=== PATIENT | male | born 1990 | race Caucasian/White ===

== ENCOUNTER 2019-06-21 16:13 | Emergency (ER) | payer SELFPAY ==
[~2019-06-21] VITALS: Ht 195.5 cm; Wt 72.7 kg
--- NOTE | 2019-06-21 16:33 | ED EENT ---
History of Present Illness General Stated Complaint: SOB History of Present Illness Date Seen by Provider: Jun 21, 2019 Time Seen by Provider: 16:20 Initial Comments 29 -year-old male presents for dental pain, right neck swelling and pain, and difficulty swallowing. He has been seen at [facility] emergency department and started on clindamycin. He was seen at [facility] today and referred here for IV antibiotics. He reports that he is able to swallow liquids, has difficulty with any thick foods or meats. 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 Had cyst in his mouth, that required surgery at age 2-3 years. Hasn't seen a dentis since age 15, doesn't brush teeth regularly. Timing/Duration: last week Location: mouth, throat Prearrival Treatment: over the counter meds, prescription meds Associated Symptoms: drooling, facial pain/swelling; No fever, No malaise, No nasal congestion/drainage, No poor fluid intake; poor solids intake; No sinus infection, No sore throat; tooth pain; No voice change Allergies and Home Medications Allergies Coded Allergies: Iodinated Contrast Media (Unverified Allergy, Unknown, 06/21/19) Sulfa (Sulfonamide Antibiotics) (Verified Allergy, Unknown, 06/21/19) erythromycin base (Verified Allergy, Unknown, 06/21/19) Home Medications Amoxicillin/Potassium Clav 1 Each Tablet, 1 EACH PO BID Prescribed by: FABIAN YBARRA on 06/21/191836 Prednisone 20 Mg Tab, 40 MG PO DAILY Prescribed by: FABIAN YBARRA on 06/21/191836 Patient Home Medication List Home Medication List Reviewed: Yes Review of Systems Review of Systems Constitutional: no symptoms reported, see HPI Mouth: see HPI, loose teeth Throat: see HPI, swelling, painful swallowing Respiratory: no symptoms reported, see HPI All Other Systems Reviewed Negative Unless Noted: Yes Past Ythyorz-Oijwdt-Pmvcqr Hx Past Med/Social Hx: Reviewed Nursing Past Med/Soc Hx Patient Social History Recreational Drug Use: No (Patient denies, UDS + canibinoids. ) Recent Foreign Travel: No Contact w/Someone Who Travel: No Physical Exam Vital Signs Vital Signs - First Documented 06/21/19 17:04 Temp 38.1 Pulse 74 Resp 14 B/P (MAP) 125/75 (92) Pulse Ox 100 O2 Delivery Room Air Height, Weight, BMI Height: '" Weight: lbs. oz. kg; BMI Method: General Appearance: WD/WN, no apparent distress Eyes: bilateral eye normal inspection, bilateral eye PERRL, bilateral eye EOMI Ears: bilateral ear auricle normal, bilateral ear canal normal, bilateral ear TM normal Nose: normal inspection; No active bleeding, No discharge Mouth/Throat: pharynx normal, dental tenderness, excessive drooling; No foreign body; mandibular swelling (right), maxillary swelling; No pharynx swelling, No pharynx tenderness, No tongue swollen, No tonsillar exudate, No uvula swelling, No voice changes; other (Marked gingivitis and tooth decay. Leukplakia under tongue on right. ) Neck: full range of motion; No carotid bruit; lymphadenopathy (R), other (marked swelling and tenderness right neck, just below mandible. No fluctuance but indurated and warmth. Trachea Midline. NO dyspnea) Cardiovascular: normal peripheral pulses, regular rate, rhythm Respiratory: chest non-tender, lungs clear, normal breath sounds Gastrointestinal: normal bowel sounds, non tender, soft Neurologic/Psychiatric: no motor/sensory deficits, alert, normal mood/affect, oriented x 3 Skin: normal color, warm/dry Progress/Results/Core Measures Results/Orders Lab Results Laboratory Tests Test 06/21/19 16:30 06/21/19 18:00 Range/Units White Blood Count 21.1 H 4.3-11.0 10^3/uL Red Blood Count 4.94 4.35-5.85 10^6/uL Hemoglobin 15.1 13.3-17.7 G/DL Hematocrit 44 40-54 % Mean Corpuscular Volume 90 80-99 FL Mean Corpuscular Hemoglobin 31 25-34 PG Mean Corpuscular Hemoglobin Concent 34 32-36 G/DL Red Cell Distribution Width 12.7 10.0-14.5 % Platelet Count 254 130-400 10^3/uL Mean Platelet Volume 10.3 7.4-10.4 FL Neutrophils (%) (Auto) 83 H 42-75 % Lymphocytes (%) (Auto) 11 L 12-44 % Monocytes (%) (Auto) 6 0-12 % Eosinophils (%) (Auto) 0 0-10 % Basophils (%) (Auto) 0 0-10 % Neutrophils # (Auto) 17.5 H 1.8-7.8 X 10^3 Lymphocytes # (Auto) 2.3 1.0-4.0 X 10^3 Monocytes # (Auto) 1.2 H 0.0-1.0 X 10^3 Eosinophils # (Auto) 0.0 0.0-0.3 10^3/uL Basophils # (Auto) 0.0 0.0-0.1 10^3/uL Neutrophils % (Manual) 88 % Lymphocytes % (Manual) 8 % Monocytes % (Manual) 4 % Eosinophils % (Manual) 0 % Basophils % (Manual) 0 % Band Neutrophils 0 % Blood Morphology Comment NORMAL Sodium Level 139 135-145 MMOL/L Potassium Level 3.6 3.6-5.0 MMOL/L Chloride Level 103 98-107 MMOL/L Carbon Dioxide Level 26 21-32 MMOL/L Anion Gap 10 5-14 MMOL/L Blood Urea Nitrogen 10 7-18 MG/DL Creatinine 0.85 0.60-1.30 MG/DL Estimat Glomerular Filtration Rate > 60 BUN/Creatinine Ratio 12 Glucose Level 99 70-105 MG/DL Calcium Level 10.2 H 8.5-10.1 MG/DL Corrected Calcium 9.9 8.5-10.1 MG/DL Total Bilirubin 0.8 0.1-1.0 MG/DL Aspartate Amino Transf (AST/SGOT) 18 5-34 U/L Alanine Aminotransferase (ALT/SGPT) 17 0-55 U/L Alkaline Phosphatase 62 40-136 U/L Total Protein 8.6 H 6.4-8.2 GM/DL Albumin 4.4 3.2-4.5 GM/DL Urine Color YELLOW Urine Clarity CLEAR Urine pH 8 5-9 Urine Specific [place] 1.010 L 1.016-1.022 Urine Protein 2+ H NEGATIVE Urine Glucose (UA) NEGATIVE NEGATIVE Urine Ketones 3+ H NEGATIVE Urine Nitrite NEGATIVE NEGATIVE Urine Bilirubin NEGATIVE NEGATIVE Urine Urobilinogen NORMAL NORMAL MG/DL Urine Leukocyte Esterase 1+ H NEGATIVE Urine RBC (Auto) NEGATIVE NEGATIVE Urine RBC NONE /HPF Urine WBC 0-2 /HPF Urine Squamous Epithelial Cells 0-2 /HPF Urine Crystals NONE /LPF Urine Bacteria NEGATIVE /HPF Urine Casts NONE /LPF Urine Mucus NEGATIVE /LPF Urine Culture Indicated NO Urine Opiates Screen POSITIVE H NEGATIVE Urine Oxycodone Screen NEGATIVE NEGATIVE Urine Methadone Screen NEGATIVE NEGATIVE Urine Propoxyphene Screen NEGATIVE NEGATIVE Urine Barbiturates Screen NEGATIVE NEGATIVE Ur Tricyclic Antidepressants Screen NEGATIVE NEGATIVE Urine Phencyclidine Screen NEGATIVE NEGATIVE Urine Amphetamines Screen NEGATIVE NEGATIVE Urine Methamphetamines Screen NEGATIVE NEGATIVE Urine Benzodiazepines Screen NEGATIVE NEGATIVE Urine Cocaine Screen NEGATIVE NEGATIVE Urine Cannabinoids Screen POSITIVE H NEGATIVE My Orders Orders - TATEFABIAN PÉREZ Cbc With Automated Diff (06/21/19 16:29) Comprehensive Metabolic Panel (06/21/19 16:29) Drug Screen Stat (Urine) (06/21/19 16:29) Ua Culture If Indicated (06/21/19 16:29) Ct Neck (Soft Tissue) Wo (06/21/19 16:29) Manual Differential (06/21/19 16:30) Ketorolac Injection (Toradol Injection) (06/21/19 17:00) Ceftriaxone For Iv Use (Rocephin For I (06/21/19 17:00) Ed Iv/Invasive Line Start (06/21/19 17:36) Ns Iv 1000 Ml (Sodium Chloride 0.9%) (06/21/19 17:36) Medications Given in ED Current Medications Medications Dose Ordered Sig/Swapna Route Start Time Stop Time Status Last Admin Dose Admin Ceftriaxone Sodium 2000 mg/ Sterile Water 20 ml @ 240 mls/hr ONCE ONCE IV 06/21/19 17:00 06/21/19 17:04 DC 06/21/19 17:20 240 MLS/HR Ketorolac Tromethamine 30 mg ONCE ONCE IVP 06/21/19 17:00 06/21/19 17:01 DC 06/21/19 16:51 30 MG Vital Signs/I&O 06/21/19 06/21/19 17:04 18:52 Temp 38.1 38.1 Pulse 74 74 Resp 14 14 B/P (MAP) 125/75 (92) 125/75 (92) Pulse Ox 100 100 O2 Delivery Room Air Progress Progress Note : Time: 16:20 Progress Note Patient seen and evaluated, recommended labs and CT of the neck/soft tissues. 1700 Toradol for pain, normal saline 1 L per IV, Rocephin 2 g per IV. 1745 Decadron 10 mg IV for inflammation, CT shows the soft tissue abscess to the neck, isolated with no extension to face. Airway is not compromised. 1830 Patient reports pain improved, taking ice chips, no trouble swallowing and managing oral secretions. Discharge instructions and return precautions reviewed with the patient. Stressed the importance of following up in establishing with a dentist and primary care provider. Diagnostic Imaging Diagonstic Imaging: CT Plain Films/CT/US/NM/MRI: other (neck and soft tissue) Comments NAME: [facility]ILLIE SHELTON [facility] REC#: [id number] PT STATUS: REG ER : 1990 PHYSICIAN: FABIAN YBARRA ADMIT DATE: 06/21/19/ER Draft Date of Exam:06/21/19 CT NECK (SOFT TISSUE) WO PROCEDURE: CT neck soft tissue without contrast. TECHNIQUE: Multiple contiguous axial images were obtained through the neck without the use of intravenous contrast. Auto Exposure Controls were utilized during the CT exam to meet ALARA standards for radiation dose reduction. INDICATION: Right-sided swelling underneath the jaw x2 weeks. Swollen tongue. History of a cyst under the right jaw removed at 2-3 years old. COMPARISON: None. FINDINGS: Examination is markedly limited by lack of intravenous contrast. There is a mixed attenuation mass which appears to involve both the floor of the mouth and may extend inferior to the mylohyoid muscle, which measures approximately 3.7 x 6.3 x 4.7 cm. This mass abuts the lingual surface of the right mandible with no suspicious lytic or sclerotic changes. There is an enlarged right jugulodigastric lymph node measuring up to 1.3 cm in short axis dimension. There is also an enlarged level I cervical lymph node measuring up to 1.3 cm in short axis dimension. No appreciable mass effect upon the airway. No large pharyngeal or laryngeal mass is appreciated on this noncontrast exam. The thyroid gland is unremarkable. The parotid and submandibular glands are poorly characterized due to the lack of IV contrast. The lung apices are clear. No acute osseous findings. The skull base, visualized paranasal sinuses, and mastoids are clear. IMPRESSION: Large mass in the right floor of the mouth may extend inferior to the mylohyoid muscle and measures up to 6.3 cm. There is also an enlarged right jugulodigastric and level I cervical lymph node. Otherwise, the cervical lymph nodes are overall prominent but nonenlarged by criteria. Given the history of a benign cystic mass removed during childhood, this may represent secondary infection of a residual component. A more malignant process cannot be excluded. Recommend MRI of the neck without and with IV contrast for further evaluation. Dictated on workstation # [id number] Dict: 06/21/19 1733 Trans: 06/21/19 1745 [id number] Interpreted by: GINETTE AC MD Electronically signed by: Reviewed: Reviewed by Me Departure Impression Primary Impression: Dental abscess Additional Impression: Cellulitis and abscess of neck Disposition: HOME, SELF-CARE Condition: Improved Departure-Patient Inst. Decision time for Depature: 18:30 Referrals: NO,LOCAL PHYSICIAN (PCP/Family) Primary Care Physician Patient Instructions: Tooth Decay, Adult (DC), Cellulitis (Skin Infection), Adult (DC) Add. Discharge Instructions: Continue taking the clindamycin as previously prescribed. Take the Augmentin one tablet twice daily as prescribed. You may alternate between Tylenol 650 mg and ibuprofen 600 mg every 4 hours for pain and swelling or fever. Continue to use salt water gargles, also rinse mouth with peroxide every 2 hours and/or Listerine. Follow-up at [facility] if symptoms are not improving or worsen. Go to the emergency department if you have difficulty breathing, inability to swallow, fever greater than 101 not relieved by Tylenol and ibuprofen or new urgent health care needs. Scripts Prednisone (Prednisone) 20 Mg Tab 40 MG PO DAILY, #6 TAB 0 Refills Prov: FABIAN YBARRA 06/21/19 Amoxicillin/Potassium Clav (Augmentin 875-125 Tablet) 1 Each Tablet 1 EACH PO BID, #20 TAB 0 Refills Prov: FABIAN YBARRA 06/21/19 FABIAN YBARRA Jun 21, 2019 16:33
[2019-06-21 16:45] LABS: BASOPHILS % (AUTO) 0 % (0-10); EOSINOPHILS % (AUTO) 0 % (0-10); HEMATOCRIT 44 % (40-54); HEMOGLOBIN 15.1 G/DL (13.3-17.7); LYMPHOCYTES # (AUTO) 2.3 X 10^3 (1.0-4.0); LYMPHOCYTES % (AUTO) 11 % (12-44); MEAN CORPUSCULAR HEMOGLOBIN 31 PG (25-34); MEAN CORPUSCULAR HGB CONC 34 G/DL (32-36); MEAN CORPUSCULAR VOLUME 90 FL (80-99); MEAN PLATELET VOLUME 10.3 FL (7.4-10.4); MONOCYTES # (AUTO) 1.2 X 10^3 (0.0-1.0); MONOCYTES % (AUTO) 6 % (0-12); NEUTROPHILS # (AUTO) 17.5 X 10^3 (1.8-7.8); NEUTROPHILS % (AUTO) 83 % (42-75); PLATELET COUNT 254 10^3/uL (130-400); RED CELL DISTRIBUTION WIDTH 12.7 % (10.0-14.5); WHITE BLOOD COUNT 21.1 10^3/uL (4.3-11.0)
[2019-06-21] MEDS ORDERED: cefTRIAXone FOR IV USE 2,000 MG in WATER (STERILE) FOR INJECTION 20 ML IV ONE (17:00)
[2019-06-21] MEDS ORDERED: KETOROLAC 30 MG/ML VIAL IVP ONE (17:00)
[2019-06-21 17:05] LABS: ALANINE AMINOTRANSFERASE 17 U/L (0-55); ALBUMIN 4.4 GM/DL (3.2-4.5); ALKALINE PHOSPHATASE 62 U/L (40-136); BILIRUBIN,TOTAL 0.8 MG/DL (0.1-1.0); BUN/CREATININE RATIO 12; CALCIUM 10.2 MG/DL (8.5-10.1); CARBON DIOXIDE 26 MMOL/L (21-32); CHLORIDE 103 MMOL/L (98-107); CREATININE SERUM 0.85 MG/DL (0.60-1.30); GFR ESTIMATED > 60; GLUCOSE 99 MG/DL (70-105); POTASSIUM 3.6 MMOL/L (3.6-5.0); SODIUM 139 MMOL/L (135-145); TOTAL PROTEIN 8.6 GM/DL (6.4-8.2)
[2019-06-21 17:08] LABS: BAND NEUTROPHILS 0 %; BASOPHILS % (MANUAL) 0 %; EOSINOPHILS % (MANUAL) 0 %; LYMPHOCYTES % (MANUAL) 8 %; MONOCYTES % (MANUAL) 4 %; NEUTROPHILS % (MANUAL) 88 %; RBC MORPH NORMAL
[2019-06-21] MEDS ORDERED: NS IV 1000 ML 1,000 ML IV SCH (17:36)
--- NOTE | 2019-06-21 17:45 | Diagnostic Imaging Report ---
PROCEDURE: CT neck soft tissue without contrast. TECHNIQUE: Multiple contiguous axial images were obtained through the neck without the use of intravenous contrast. Auto Exposure Controls were utilized during the CT exam to meet ALARA standards for radiation dose reduction. INDICATION: Right-sided swelling underneath the jaw x2 weeks. Swollen tongue. History of a cyst under the right jaw removed at 2-3 years old. COMPARISON: None. FINDINGS: Examination is markedly limited by lack of intravenous contrast. There is a mixed attenuation mass which appears to involve both the floor of the mouth and may extend inferior to the mylohyoid muscle, which measures approximately 3.7 x 6.3 x 4.7 cm. This mass abuts the lingual surface of the right mandible with no suspicious lytic or sclerotic changes. There is an enlarged right jugulodigastric lymph node measuring up to 1.3 cm in short axis dimension. There is also an enlarged level I cervical lymph node measuring up to 1.3 cm in short axis dimension. No appreciable mass effect upon the airway. No large pharyngeal or laryngeal mass is appreciated on this noncontrast exam. The thyroid gland is unremarkable. The parotid and submandibular glands are poorly characterized due to the lack of IV contrast. The lung apices are clear. No acute osseous findings. The skull base, visualized paranasal sinuses, and mastoids are clear. IMPRESSION: Large mass in the right floor of the mouth may extend inferior to the mylohyoid muscle and measures up to 6.3 cm. There is also an enlarged right jugulodigastric and level I cervical lymph node. Otherwise, the cervical lymph nodes are overall prominent but nonenlarged by criteria. Given the history of a benign cystic mass removed during childhood, this may represent secondary infection of a residual component. A more malignant process cannot be excluded. Recommend MRI of the neck without and with IV contrast for further evaluation. Dictated by: Dictated on workstation # [id number]
[2019-06-21 18:09] LABS: BILIRUBIN,URINE NEGATIVE (NEGATIVE); CLARITY,URINE CLEAR; COLOR,URINE YELLOW; GLUCOSE, URINE (UA) NEGATIVE (NEGATIVE); KETONES,URINE 3+ (NEGATIVE); LEUKOCYTE ESTERASE ,URINE 1+ (NEGATIVE); NITRITE,URINE NEGATIVE (NEGATIVE); PH,URINE 8 (5-9); PROTEIN,URINE 2+ (NEGATIVE); UROBILINOGEN,URINE NORMAL (NORMAL)
[2019-06-21 18:20] LABS: AMPHETAMINE SCREEN, URINE NEGATIVE (NEGATIVE); BARBITURATE SCREEN URINE NEGATIVE (NEGATIVE); BENZODIAZEPINES SCREEN URINE NEGATIVE (NEGATIVE); CANNABINOID SCREEN, URINE POSITIVE (NEGATIVE); COCAINE SCREEN URINE NEGATIVE (NEGATIVE); METHADONE STAT NEGATIVE (NEGATIVE); METHAMPHETAMINE SCREEN URINE S NEGATIVE (NEGATIVE); OPIATE SCREEN URINE POSITIVE (NEGATIVE); OXYCODONE STAT NEGATIVE (NEGATIVE); PROPOXYPHENE STAT NEGATIVE (NEGATIVE); TRICYCLIC ANTIDEPRESSANTS SCRE NEGATIVE (NEGATIVE)
[2019-06-21 18:22] LABS: BACTERIA,URINE NEGATIVE /HPF; SQUAMOUS EPITHELIAL CELL,UR 0-2 /HPF; WBC,URINE 0-2 /HPF
[2019-06-21] MEDS ORDERED: AMOX-358 PO (18:37)
[2019-06-21] MEDS ORDERED: PRD20T PO (18:37)
[2019-06-21 18:52] VITALS: BP 125/75
== END 2019-06-21 18:52 | disposition home or self-care (01) ==
LOC: ER 16:15
DX: K04.7 Periapical abscess without sinus (principal); L02.11 Cutaneous abscess of neck; Z88.2 Allergy status to sulfonamides; Z88.1 Allergy status to other antibiotic agents; Z91.041 Radiographic dye allergy status
CPT/HCPCS: 36415; 70490; 80053; 80306; 81000; 85007; 85027; 96374; 96375